=== PATIENT | female | born 1980 | race Caucasian/White ===

== ENCOUNTER 2018-08-08 10:57 | Day surgery (SDC) | payer OTHER, SELFPAY ==
--- NOTE | 2018-08-08 | PATH_ITS ---
[facility] Accession Number: [id number] . 01 Material submitted: . ESOPHAGEAL BIOPSIES . 02 Diagnosis: Esophgus, Biopsies: Squamous epithelium with increased intraepithelial eosinophils (greater than 50 per high-power field). Please see comment. Negative for dysplasia and malignancy. MRV/08/09/2018 . 02 Comment: In the proper clinical setting, the morphologic appearance could support a clinical impression of eosinophilic esophagitis. The differential diagnosis includes a drug reaction, food allergies, and gastroesophageal reflux. . 02 Electronically signed: . Nanda Wolf MD, Pathologist NPI- [id number] . 01 Gross description: . Received in one formalin-filled container labeled with the patient's name and labeled esophageal, are two 0.1-0.2 cm portions of tissue, entirely submitted in one cassette. ([id number]) /FRR . 02 Pathologist provided ICD-10: K20.0 . 02 CPT . 219481 Performed at: 01 [facility] [address] [place] [address], [place], [place] [id number] MD Yusuf Ibarra MD Phone: [phone] Performed at: 02 [facility] [place] [address] [place], [place] [id number] MD Nanda Wolf MD Phone: [phone]
[2018-08-08 12:36] VITALS: BP 119/76; PULSE 74; RESP 17; TEMP 36.2; O2SAT 99
[2018-08-08 12:39] VITALS: BMI 38.2
--- NOTE | 2018-08-08 13:27 | PM.PREOP ---
Pre-operative Note Interval Note Pre-op Check: Yes History & Physical Reviewed by Physician and Yes Exam Performed Changes: No ASA Class (for procedural sedation): I
--- NOTE | 2018-08-08 13:28 | PM.OP.ENDO ---
Operative Date/Time/Diagnoses Date of procedure: 08/08/18 Time of procedure: 13:28 Pre-op diagnosis: See indication and Post-op diagnosis: same Procedure & Clinicians Study performed: EGD Same procedure as scheduled: Yes Indications: Dysphagia Surgeon: Avery Santos Procedure Notes Procedure in detail: After informed consent was obtained the patient was placed left lateral decubitus position. The video upper scope placed into the oropharynx with the patient's ultrasound and the esophagus. The esophagus, stomach, duodenum were carefully examined. On withdrawal, retroflexed view the GE junction was performed. The scope was removed. The patient tolerated procedure well Blood loss none Complications none Sedation Total sedation time 17 min Versed 10 mg fentanyl 200 mcg IV titration Findings 1. Multiple longitudinal furrows and multiple small rings from mid esophagus to distal esophagus. Biopsies taken to rule out the eosinophilic esophagitis 2. Dominant Schatzki's like appearing ring at the GE junction at approximately 40 cm. This was dilated to 15 mm balloon through the scope. Inspection post procedure showed 1 area of mucosal tearing but superficial. 3. 2 cm hiatal hernia 4. Normal stomach and duodenum otherwise Patient will be placed on anti secretory agents to assist in healing and will merely await the results of her biopsies. Will then be in touch by telephone to discuss how she is doing post dilation. Due to difficulty completely sedating her it would be vargas to have future procedures performed with anesthesia assistance.
[2018-08-08] MEDS: SODIUM CHLORIDE 0.9% 1,000 ML 42 ML IV (13:42)
[2018-08-08] MEDS: MIDAZOLAM 5 MG/5 ML VIAL IV (14:33)
[2018-08-08] MEDS: fentaNYL 250 MCG/5 ML INJ IV (14:34)
[2018-08-08 14:38] VITALS: BP 107/70; PULSE 87; RESP 16; TEMP 36.6; O2SAT 95
[2018-08-08 15:05] VITALS: BP 118/81; PULSE 76; RESP 17; TEMP 36.2; O2SAT 99
== END 2018-08-08 15:20 | disposition home or self-care (01) ==
PROVIDERS: PCP Family Medicine; Visit Provider Internal Medicine Gastroenterology
PROC: 0DJ08ZZ Inspection of Upper Intestinal Tract, Via Natural or Artificial Opening Endoscopic (ICD-10-PCS; CPT 43235; principal; 2018-08-08 13:30)
DX: K20.0 Eosinophilic esophagitis (principal); K21.9 Gastro-esophageal reflux disease without esophagitis; K44.9 Diaphragmatic hernia without obstruction or gangrene; K22.2 Esophageal obstruction
CPT/HCPCS: 43249; 43239; J2250; J3010

== ENCOUNTER → 2019-03-01 15:26 | Outpatient (CLI) | payer OTHER, SELFPAY ==
--- NOTE | 2019-03-01 | DI.RAD.S_ITS ---
PROCEDURE: XR CHEST 2V INDICATIONS: FEBRILE COUGH/CHEST PAIN TECHNIQUE: 2 views of the chest were acquired. COMPARISON: [facility], CR, XR CHEST 2V, 12/24/2017, 7:21. FINDINGS: Surgical changes and devices: None. Lungs and pleura: There is patchy consolidation involving the medial margin of the right midlung zone on the frontal view which projects over the perihilar region on the lateral view. This then represent airspace disease involving the inferior, medial aspect of the right upper lobe versus the medial segment of the right middle lobe. Associated airway thickening. Stable subsegmental atelectasis versus scarring at the left costophrenic angle. No pleural effusions or pneumothorax. Mediastinum: Mediastinal contours are normal. Heart size is normal. Bones and chest wall: No suspicious bony abnormalities. Soft tissues appear unremarkable. IMPRESSION: Right medial mid lung zone airspace disease/pneumonia which involves the inferomedial margin of the right upper lobe persist the medial segment of the right middle lobe. Recommend followup chest radiograph 4-6 weeks after treatment to document return to baseline exam. Dictated by: Fabián Ovalles M.D. on 03/01/2019 at 17:41 Approved by: Fabián Ovalles M.D. on 03/01/2019 at 17:45
== END ==
PROVIDERS: PCP Family Medicine; Visit Provider Nurse Practitioner Family
DX: R05 Cough (principal); R07.9 Chest pain, unspecified; R50.9 Fever, unspecified; J45.909 Unspecified asthma, uncomplicated
CPT/HCPCS: 71046

== ENCOUNTER 2019-03-04 03:31 | Emergency (ER) | payer OTHER, SELFPAY ==
[2019-03-04 03:43] VITALS: BP 132/69; PULSE 106; RESP 18; TEMP 36.8; O2SAT 95; BMI 40.8
--- NOTE | 2019-03-04 03:46 | ED_ITS ---
HPI - URI/Sore Throat General Chief Complaint: Upper Respiratory Symptoms Stated Complaint: woke up sweating felt heart rate was weird Time Seen by Provider: 03/04/19 03:33 Source: patient Mode of arrival: ambulatory Limitations: no limitations History of Present Illness HPI Narrative: Patient is a 38-year-old female who presents with heart palpitations and feeling sweaty. She actually is has felt ill all week. She has had sweats and chills and fever along with productive cough. He has had fevers as high as 102 all week. She got started on doxycycline couple days ago she overall states that she has been feeling little bit better. However today she woke up she felt like her heart was racing and she was drenched in sweat. She actually called 911 and decided to come POV to the ER for further evaluation. She says she is feeling a little bit better. She has been trying to hydrate and keep fluids down. Related Data Home Medications Medication Instructions Recorded Confirmed albuterol sulfate [Ventolin HFA] 2 puff INH Q4HP #0 08/13/11 08/08/18 loratadine 10 mg PO DAILY 08/08/18 08/08/18 mometasone-formoterol [Dulera] 2 puff INHALATION DAILY 08/08/18 08/08/18 [id number] fum-folic 1 tab PO DAILY 08/08/18 08/08/18 [Vol-Plus] Previous Rx's Medication Instructions Recorded epinephrine [EpiPen 2-Hermilo] 0.3 mg IM Q10M PRN #1 each 12/23/17 Allergies Allergy/AdvReac Type Severity Reaction Status Date / Time azithromycin Allergy Severe THROAT Verified 08/08/18 12:31 SWELLING naproxen Allergy Severe Difficulty Verified 08/08/18 12:31 Breathing peanut Allergy Severe Anaphylaxis Verified 08/08/18 12:31 Penicillins Allergy Severe Difficulty Verified 08/08/18 12:31 Breathing scallops Allergy Severe Difficulty Verified 08/08/18 12:31 Breathing brazil nuts Allergy Severe Difficulty Uncoded 12/24/17 07:14 Breathing Fin Fish Allergy Severe Difficulty Uncoded 12/24/17 07:14 Breathing Review of Systems Review of Systems ROS Unobtainable: All systems reviewed & are unremarkable except as noted in HPI and below Constitutional Reports chills and Reports fever(s) Eyes Denies change in vision, Denies eye discharge, Denies irritation and Denies loss of vision ENT Ears, Nose, Mouth, and Throat: Denies change in voice, Denies neck pain and Denies sore throat Cardiovascular Denies chest pain, Denies irregular heart rhythm, Denies lightheadedness, Reports palpitations, Reports dyspnea, Denies dyspnea on exertion and Denies orthopnea Respiratory Reports cough, Reports dyspnea, Denies dyspnea on exertion and Denies wheezing Gastrointestinal Gastrointestinal: Denies abdominal pain, Denies change in bowel habits, Denies diarrhea, Denies nausea and Denies vomiting Genitourinary Denies hematuria, Denies flank pain, Denies urinary incontinence and Denies urinary urgency Musculoskeletal Denies neck pain Integumentary/Breasts Denies pruritus, Denies erythema, Denies rash and Denies wounds Neurologic Denies loss of vision Endocrine Reports palpitations Allergic/Immunologic Denies wheezing [facility] Medical History Asthma (Acute) Social History household members: spouse, children and friend(s) Smoking Status: Never smoker Social History household members: spouse, children and friend(s) Smoking Status: Never smoker Exam Initial Vital Signs Initial Vital Signs: Vital Signs Temperature 98.2 F 03/04/19 03:43 Pulse Rate 106 H 03/04/19 03:43 Respiratory Rate 18 03/04/19 03:43 Blood Pressure 132/69 03/04/19 03:43 Pulse Oximetry 95 03/04/19 03:43 GENERAL: Alert well-appearing female and in no acute distress. HEENT: Head atraumatic,EOMI, pupils reactive, face symmetric, moist mucous membranes CARDIOVASCULAR: Regular rate and rhythm without murmurs, rubs or gallops. RESPIRATORY: Breath sounds equal bilaterally, no wheezes rales or rhonchi. ABDOMEN: Soft, nontender. Normoactive bowel sounds all 4 quadrants. No guarding or rebound. EXTREMITIES: Normal range of motion, no clubbing or edema. Neurovascularly intact NEUROLOGICAL: Alert and oriented x4.Normal gait and speech. Cranial nerves II through XII grossly intact. SKIN: Warm, dry, no laceration, no petechiae, no rashes or lesions. Course Orders Ordered: ED Orders 03/04/19 03:46 Consult to Respiratory Therapy Evaluate & Treat 03/04/19 03:47 XR chest 1V Stat EKG-12 Lead Stat 03/04/19 04:50 Complete Blood Count AUTO DIFF Stat Comprehensive Metabolic Panel Stat Lactate (Lactic Acid) Stat Procalcitonin Stat 03/04/19 05:05 Blood Culture Stat Discontinued Medications Sodium Chloride (Normal Saline 0.9%) 1,000 mls @ 1,000 mls/hr IV BOLUS ONE Stop: 03/04/19 04:45 Last Admin: 03/04/19 05:06 Dose: 1,000 mls/hr Vital Signs - 8 hr 03/04/19 03:43 Temperature 98.2 F Pulse Rate 106 H Respiratory Rate 18 Blood Pressure 132/69 Pulse Oximetry 95 MDM - URI/Sore Throat Lab Data Attestation: I reviewed the patient's lab results. Result diagrams: 03/04/19 04:50 03/04/19 04:50 Lab Results 03/04/19 03/04/19 03/04/19 Range/Units 04:50 04:50 04:50 WBC 7.1 (4.5-11.0) X10^3/uL RBC 4.17 (4.0-5.2) X10^6/uL Hgb 12.7 (12.0-16.0) g/dL Hct 38.0 (36-46) % MCV 91.1 (80-100) fL MCH 30.5 (26-34) PG MCHC 33.4 (30-36) % RDW 14.3 (11.6-14.8) % Plt Count 232 (150-400) X10^3/uL Neut % (Auto) 78.4 H (50-75) % Lymph % (Auto) 15.9 L (25-40) % [place] % (Auto) 5.4 (3-14) % Eos % (Auto) 0.1 L (2-4) % Baso % (Auto) 0.2 (0-2) % Neut # (Auto) 5600 (5081-1794) /uL Lymph # (Auto) 1100 (9499-7521) /uL [place] # (Auto) 400 (0-900) /uL Eos # (Auto) 0 (0-450) /uL Baso # (Auto) 0 (0-100) /uL Sodium 143 (137-145) mmol/L Potassium 3.8 (3.4-5.1) mmol/L Chloride 109 H (98-107) mmol/L Carbon Dioxide 25 (22-32) mmol/L BUN 16 (7-17) mg/dL Creatinine 0.60 (0.52-1.04) mg/dL Estimated GFR > 60.0 (>60) mL/min BUN/Creatinine Ratio 26.7 H (6-22) Glucose 111 H (70-100) mg/dL Lactate (0.7-2.1) mmol/L Calcium 9.2 (8.4-10.2) mg/dL Total Bilirubin 0.5 (0.2-1.3) mg/dL AST 25 (14-36) IU/L ALT 29 (9-52) IU/L Alkaline Phosphatase 105 (38-126) U/L Total Protein 7.8 (6.3-8.2) g/dL Albumin 4.2 (3.5-5.0) g/dL Globulin 3.6 (1.7-4.1) g/dL Albumin/Globulin Ratio 1.2 (1.0-2.8) Procalcitonin 0.05 (<0.5) ng/mL 03/04/19 Range/Units 04:50 WBC (4.5-11.0) X10^3/uL RBC (4.0-5.2) X10^6/uL Hgb (12.0-16.0) g/dL Hct (36-46) % MCV (80-100) fL MCH (26-34) PG MCHC (30-36) % RDW (11.6-14.8) % Plt Count (150-400) X10^3/uL Neut % (Auto) (50-75) % Lymph % (Auto) (25-40) % [place] % (Auto) (3-14) % Eos % (Auto) (2-4) % Baso % (Auto) (0-2) % Neut # (Auto) (2238-1308) /uL Lymph # (Auto) (5656-6142) /uL [place] # (Auto) (0-900) /uL Eos # (Auto) (0-450) /uL Baso # (Auto) (0-100) /uL Sodium (137-145) mmol/L Potassium (3.4-5.1) mmol/L Chloride (98-107) mmol/L Carbon Dioxide (22-32) mmol/L BUN (7-17) mg/dL Creatinine (0.52-1.04) mg/dL Estimated GFR (>60) mL/min BUN/Creatinine Ratio (6-22) Glucose (70-100) mg/dL Lactate 1.0 (0.7-2.1) mmol/L Calcium (8.4-10.2) mg/dL Total Bilirubin (0.2-1.3) mg/dL AST (14-36) IU/L ALT (9-52) IU/L Alkaline Phosphatase (38-126) U/L Total Protein (6.3-8.2) g/dL Albumin (3.5-5.0) g/dL Globulin (1.7-4.1) g/dL Albumin/Globulin Ratio (1.0-2.8) Procalcitonin (<0.5) ng/mL Point of Care Testing Test Results Negative Urine Dip Bedside Urine Glucose Negative Bedside Urine Bilirubin - Negative Bedside Urine Ketone - Negative Urine Specific [place] 1.010 Bedside Urine Occult Blood - Negative Bedside Urine pH 6.0 Bedside Urine Protein - Negative Bedside Urine Urobilinogen - Negative Bedside Urine Nitrite - Negative Bedside Urine Leukocytes - Negative Esterase Imaging Data Chest x-ray: Attestation: I personally reviewed and interpreted this imaging study as follows: My impression: Right middle lobe pneumonia as seen previously ECG Data Attestation: I personally reviewed and interpreted this ECG as follows: Prior ECG tracings: available for review Interpretation: Normal sinus rhythm rate 80 to WI interval [address] changes no to wave inversions MDM Narrative Medical decision making narrative: Patient's blood work is reassuring she overall is not septic. Pneumonia still remains. However seems to be responding well clinically current antibiotics. Recommend continuing those. At this time no need for admission. Discharge Plan Departure Patient Disposition: Home Clinical Impression: Pneumonia Qualifiers: Pneumonia type: due to unspecified organism Laterality: right Lung location: middle lobe of lung Qualified Code(s): J18.1 - Lobar pneumonia, unspecified organism Instructions: DI for Pneumonia -- Adult Activity Restrictions/Additional Instructions: *You have been diagnosed with pneumonia *What to do: At this time it appears that your antibiotics are working but you need to take them for longer *Continue to take medications as directed Finish antibiotics as previously prescribed Use albuterol every 4 hours if needed for shortness of breath *Follow up with your primary care provider in 2-3 days *Return to ER if you should have increasing shortness of breath, persistent fevers, inability to tolerate fluids or any new, worsening or concerning symptoms Prescriptions: No Action albuterol sulfate [Ventolin HFA] 90 MCG/PUFF HFA aerosol inhaler 2 puff INH Q4HP Qty: 0 RF: 0 epinephrine [EpiPen 2-Hermilo] 0.3 mg/0.3 mL auto-injector 0.3 mg IM Q10M PRN (Reason: anaphylaxis) Qty: 1 RF: 0 mometasone-formoterol [Dulera] 100-5 mcg/actuation HFA aerosol inhaler 2 puff Inhalation DAILY RF: 0 loratadine 10 mg Capsule 10 mg PO DAILY RF: 0 [id number] fum-folic [Vol-Plus] 27 mg iron- 1 mg Tablet 1 tab PO DAILY RF: 0 Referrals: Ángel Quick MD [Primary Care Provider] - Stand Alone Forms: Work Release Note
--- NOTE | 2019-03-04 03:47 | DI.RAD.S_ITS ---
PROCEDURE: XR CHEST 1V INDICATIONS: short of breath TECHNIQUE: One view of the chest was acquired. COMPARISON: [facility], CR, XR CHEST 2V, 12/24/2017, 7:21. [facility], CR, XR CHEST 2V, 03/01/2019, 15:42. FINDINGS: Surgical changes and devices: None. Lungs and pleura: Lungs are clear. No pleural effusions or pneumothorax. Mediastinum: Mediastinal contours appear normal. Heart size is normal. Bones and chest wall: No suspicious bony lesions. Overlying soft tissues appear unremarkable. IMPRESSION: No acute cardiopulmonary disease process. Dictated by: Rafia Carbone MD, PhD on 03/04/2019 at 8:58 Approved by: Rafia Carbone MD, PhD on 03/04/2019 at 8:59
[2019-03-04 05:05] LABS: Add Manual Diff / Slide Review NO; Basophils Absolute Auto 0 /uL (0-100); Basophils Percent Auto 0.2 % (0-2); Eosinophils Absolute Auto 0 /uL (0-450); Eosinophils Percent Auto 0.1 % (2-4); Hemoglobin 12.7 g/dL (12.0-16.0); Lymphocytes Absolute Auto 1100 /uL (1100-4500); Lymphocytes Percent Auto 15.9 % (25-40); Mean Corpuscular HGB Conc 33.4 % (30-36); Mean Corpuscular Hemoglobin 30.5 PG (26-34); Mean Corpuscular Volume 91.1 fL (80-100); Monocytes Absolute Auto 400 /uL (0-900); Monocytes Percent Auto 5.4 % (3-14); Neutrophils Absolute Auto 5600 /uL (1500-7000); Neutrophils Percent Auto 78.4 % (50-75); Platelet Count 232 X10^3/uL (150-400); Red Blood Cell Count 4.17 X10^6/uL (4.0-5.2); Red Cell Distribution Width 14.3 % (11.6-14.8); White Blood Cell Count 7.1 X10^3/uL (4.5-11.0)
[2019-03-04] MEDS: SODIUM CHLORIDE 0.9% 1,000 ML 1000 ML IV (05:06)
[2019-03-04 05:11] LABS: Alanine Aminotransferase 29 IU/L (9-52); Albumin 4.2 g/dL (3.5-5.0); Albumin Globulin Ratio 1.2 (1.0-2.8); Alkaline Phosphatase 105 U/L (38-126); Aspartate Aminotransferase 25 IU/L (14-36); BUN Creatinine Ratio 26.7 (6-22); Bilirubin Total 0.5 mg/dL (0.2-1.3); Blood Urea Nitrogen 16 mg/dL (7-17); Calcium 9.2 mg/dL (8.4-10.2); Carbon Dioxide 25 mmol/L (22-32); Chloride 109 mmol/L (98-107); Estimated Glomerular Filt Rate > 60.0 mL/min (>60); Globulin 3.6 g/dL (1.7-4.1); Glucose 111 mg/dL (70-100); HEMOLYSIS < 15 (0-50); Potassium 3.8 mmol/L (3.4-5.1); Sodium 143 mmol/L (137-145); Total Protein 7.8 g/dL (6.3-8.2)
[2019-03-04 05:30] LABS: Procalcitonin 0.05 ng/mL (<0.5)
[2019-03-04 06:06] VITALS: BP 103/52; PULSE 84; RESP 22; TEMP 36.5; O2SAT 96
== END 2019-03-04 06:07 | disposition home or self-care (01) ==
PROVIDERS: Emergency Provider Emergency Medicine; PCP Family Medicine
DX: J18.1 Lobar pneumonia, unspecified organism (principal); R00.2 Palpitations
CPT/HCPCS: 36415; 36591; 71045; 80053; 81003; 81025; 83605; 84145; 85025; 87040; 93005; 96360; 99283; 99285

== ENCOUNTER 2019-04-17 07:33 | Day surgery (SDC) | payer OTHER, SELFPAY ==
[2019-04-17] VITALS (7 sets, daily range): BP systolic 95–123; BP diastolic 56–77; PULSE 85–93; RESP 10–20; TEMP 36.2–36.7; O2SAT 89–95; BMI 42.1
[2019-04-17] MEDS: SODIUM CHLORIDE 0.9% 1,000 ML 200 ML IV (08:02)
--- NOTE | 2019-04-17 08:39 | PM.PREOP ---
Pre-operative Note Interval Note History & Physical reviewed/Exam performed by Physician: Yes Changes to H&P: No ASA Class (for procedural sedation): II
--- NOTE | 2019-04-17 08:39 | PM.OP.ENDO ---
Operative Date/Time/Diagnoses Date of procedure: 04/17/19 Time of procedure: 08:39 Pre-op diagnosis: See indication and findings Procedure & Clinicians Study performed: EGD Same procedure as scheduled: Yes Indications: Dysphagia Surgeon: Avery Santos Procedure Notes Procedure in detail: After informed consent was obtained the patient was placed in left lateral decubitus position. The video upper scope was placed into the oropharynx with the patient's health swallowed into the esophagus. The esophagus, stomach, and duodenum were carefully examined. On withdrawal, retroflexed view the GE junction was performed. The scope was removed. The patient tolerated the procedure well. Blood loss none Complications none Sedation Total sedation time 10 minutes Fentanyl 200 mg Versed 10 mg IV titration Findings 1. Furrows and rings in the esophagus consistent with known diagnosis of eosinophilic esophagitis 2. Mild to moderate Schatzki's ring at the GE junction at 40 cm. This was treated with a 15-18 mm balloon. Good effect was achieved. No complications noted. 3. 3 cm hiatal hernia 4. Otherwise normal stomach 5. Normal duodenal bulb Terri will call me in 2 weeks to let me know how she is doing. They are in the process of getting an appointment with Dr. Monsalve.
[2019-04-17] MEDS: ONDANSETRON 4 MG/2 ML INJ IV (09:01)
--- NOTE | 2019-04-17 09:08 | SUR.OPER ---
GLASSES IN LABELED BAG TO PACU WITH PATIENT
[2019-04-17] MEDS: fentaNYL 250 MCG/5 ML INJ IV (09:12)
[2019-04-17] MEDS: MIDAZOLAM 5 MG/5 ML VIAL IV (09:15)
== END 2019-04-17 10:05 | disposition home or self-care (01) ==
PROVIDERS: PCP Family Medicine; Visit Provider Internal Medicine Gastroenterology
PROC: 0DJ08ZZ Inspection of Upper Intestinal Tract, Via Natural or Artificial Opening Endoscopic (ICD-10-PCS; CPT 43235; principal; 2019-04-17 09:00)
DX: K20.0 Eosinophilic esophagitis (principal); K22.2 Esophageal obstruction; K44.9 Diaphragmatic hernia without obstruction or gangrene
CPT/HCPCS: 43249; J2250; J2405; J3010

== ENCOUNTER → 2019-04-24 16:55 | Outpatient (CLI) | payer OTHER, SELFPAY ==
--- NOTE | 2019-04-24 16:57 | DI.RAD.S_ITS ---
PROCEDURE: XR CHEST 2V INDICATIONS: HISTORY OF PNEUMONIA TECHNIQUE: 2 views of the chest were acquired. COMPARISON: [facility], CR, XR CHEST 1V, 03/04/2019, 4:16. FINDINGS: Surgical changes and devices: None. Lungs and pleura: Coarse interstitial markings in both lungs. Small opacity in the left lower lung along the cardiac border. No pleural effusion. No pneumothorax. Mediastinum: Mediastinal contours are normal. Heart size is normal. Bones and chest wall: No suspicious bony abnormalities. Soft tissues appear unremarkable. IMPRESSION: Mildly coarse interstitial markings suggests chronic bronchitis or reactive airways disease. Small opacity at the left cardiac border may be atelectatic change, less likely infection. Clinical correlation recommended. Dictated by: Nancy Bowers M.D. on 04/24/2019 at 18:48 Approved by: Nancy Bowers M.D. on 04/24/2019 at 18:49
== END ==
PROVIDERS: PCP Family Medicine; Visit Provider Family Medicine
DX: Z87.01 Personal history of pneumonia (recurrent) (principal)
CPT/HCPCS: 71046

== ENCOUNTER → 2020-04-22 10:30 | Outpatient (CLI) | payer OTHER, SELFPAY ==
--- NOTE | 2020-04-22 | DI.RAD.S_ITS ---
PROCEDURE: XR FOOT LT MIN 3V INDICATIONS: LEFT INNER FOOT PAIN TECHNIQUE: 3 views of the foot were acquired. COMPARISON: [facility], , FOOT 3V RIGHT, 06/26/2013, 15:37. FINDINGS: Bones: No fractures or dislocations. No suspicious bony lesions. Degenerative changes are seen, which are most prominent involving the Lisfranc joint. There is a moderate prominent plantar calcaneal spur. Incidental note is made of an enthesophyte at the Achilles insertion. A bipartite os peroneum can be seen. Incidental note is made of an accessory ossicle, an os trigonum. Soft tissues: No tibiotalar joint effusion. Achilles tendon appears normal. IMPRESSION: Premature degenerative changes are seen, particularly along the Lisfranc joint. The moderate prominent plantar calcaneal spur can be seen. Dictated by: Peter Saenz M.D. on 04/22/2020 at 10:33 Approved by: Peter Saenz M.D. on 04/22/2020 at 10:34
== END ==
PROVIDERS: PCP Family Medicine; Referring Provider Family Medicine; Visit Provider Family Medicine
DX: M79.672 Pain in left foot (principal); M77.31 Calcaneal spur, right foot
CPT/HCPCS: 73630

== ENCOUNTER → 2020-07-13 10:39 | Outpatient (CLI) | payer OTHER, SELFPAY ==
--- NOTE | 2020-07-13 | DI.CT.S_ITS ---
PROCEDURE: CT LE RT WO CON INDICATIONS: ANKYLOSING HYPEROSTOSIS TECHNIQUE: Noncontrast 1-1.5 mm axial sections acquired from above the tibiotalar joint to the bottom of the calcaneus, with coronal and sagittal reformats. COMPARISON: [facility], CR, XR FOOT 3+ VIEWS RIGHT, 06/24/2020, 15:50. FINDINGS: Image quality: Excellent. Bones: Examination of right foot shows hyperostosis involving lateral cortex of 2nd metatarsal base/proximal shaft, base and proximal shaft of 3rd and 4th metatarsal bones as well as medial cortex of 5th metatarsal base/proximal shaft. There is pseudoarthrosis between base/proximal shaft of 2nd through 5th metatarsal bones. No evidence of ankylosis. No fracture or dislocation. No suspicious intraosseous lesion. Well-defined plantar calcaneal enthesophyte is seen. Tiny dorsal calcaneal enthesophyte is also noted. Osteoarthritic changes are noted throughout midfoot and hindfoot joints. Soft tissues: Plantar fascia is grossly intact. Achilles tendon is intact. No full-thickness extensor, flexor, or peroneus tendon rupture. No soft tissue mass or fluid collection. IMPRESSION: 1. Hyperostosis involving 2nd through 5th metatarsal bases/proximal shaft with pseudoarthrosis as above. There is no ankylosis at this time. No suspicious intraosseous lesion. No fracture or dislocation. 2. Mild osteoarthritic changes are noted throughout midfoot and hindfoot joints. Well-defined plantar calcaneal enthesophyte. Dictated by: Erick Martin M.D. on 07/13/2020 at 11:29 Approved by: Erick Martin M.D. on 07/13/2020 at 11:38
== END ==
PROVIDERS: PCP Family Medicine; Referring Provider Podiatrist; Visit Provider Podiatrist
DX: M85.871 Other specified disorders of bone density and structure, right ankle and foot (principal)
CPT/HCPCS: 73700

== ENCOUNTER → 2021-01-08 12:19 | Outpatient (CLI) | payer OTHER, SELFPAY ==
[2021-01-08 13:40] LABS: Add Manual Diff / Slide Review NO; Basophils Absolute Auto 0 /uL (0-100); Basophils Percent Auto 0.9 % (0-2); Eosinophils Absolute Auto 400 /uL (0-450); Eosinophils Percent Auto 7.3 % (2-4); Hematocrit 39.3 % (36-46); Hemoglobin 12.7 g/dL (12.0-16.0); Lymphocytes Absolute Auto 1900 /uL (1100-4500); Lymphocytes Percent Auto 33.2 % (25-40); Mean Corpuscular HGB Conc 32.4 % (30-36); Mean Corpuscular Hemoglobin 30.7 PG (26-34); Mean Corpuscular Volume 94.8 fL (80-100); Monocytes Absolute Auto 400 /uL (0-900); Monocytes Percent Auto 7.1 % (3-14); Neutrophils Absolute Auto 3000 /uL (1500-7000); Neutrophils Percent Auto 51.5 % (50-75); Platelet Count 194 X10^3/uL (150-400); Red Blood Cell Count 4.15 X10^6/uL (4.0-5.2); Red Cell Distribution Width 14.4 % (11.6-14.8); White Blood Cell Count 5.7 X10^3/uL (4.5-11.0)
[2021-01-08 13:57] LABS: Alanine Aminotransferase 25 IU/L (<35); Albumin 4.1 g/dL (3.5-5.0); Albumin Globulin Ratio 1.2 (1.0-2.8); Alkaline Phosphatase 90 U/L (38-126); Aspartate Aminotransferase 33 IU/L (14-36); BUN Creatinine Ratio 15.9 (6-22); Bilirubin Total 0.3 mg/dL (0.2-1.3); Blood Urea Nitrogen 10 mg/dL (7-17); C-Reactive Protein Quant 1.4 mg/dL (<1.0); Calcium 8.8 mg/dL (8.4-10.2); Carbon Dioxide 25 mmol/L (22-32); Chloride 108 mmol/L (98-107); Estimated Glomerular Filt Rate > 60.0 mL/min (>60); Globulin 3.4 g/dL (1.7-4.1); Glucose 98 mg/dL (70-100); HEMOLYSIS < 15 (0-50); Potassium 3.8 mmol/L (3.4-5.1); Sodium 139 mmol/L (137-145); Total Protein 7.5 g/dL (6.3-8.2)
[2021-01-08 14:14] LABS: Erythrocyte Sedimentation Rate 19 MM/HR (0-20)
== END ==
PROVIDERS: PCP Family Medicine; Referring Provider Internal Medicine Rheumatology; Visit Provider Internal Medicine Rheumatology
DX: M89.40 Other hypertrophic osteoarthropathy, unspecified site (principal)
CPT/HCPCS: 36415; 80053; 85025; 85651; 86140

== ENCOUNTER → 2021-01-11 16:02 | Outpatient (CLI) | payer OTHER, SELFPAY ==
--- NOTE | 2021-01-11 | DI.RAD.S_ITS ---
PROCEDURE: XR KNEE LT 3V INDICATIONS: HYPERTROPHIC OSTEOARTHROPATHY TECHNIQUE: 3 views of the knee were acquired. COMPARISON: [facility], , KNEE 3V RIGHT, 02/26/2015, 8:59. FINDINGS: Bones: No fractures or dislocations. Sfba-er-dfqsuble tricompartmental osteoarthritis is seen more prominent in medial femoral tibial compartment. No suspicious bony lesions. Soft tissues: No joint effusion. No suspicious soft tissue calcifications. IMPRESSION: Xynq-ml-rollunbz tricompartmental osteoarthritis more prominent in medial femoral tibial compartment. No fracture or dislocation. No significant joint effusion. Dictated by: Erick Martin M.D. on 01/11/2021 at 17:33 Approved by: Erick Martin M.D. on 01/11/2021 at 17:34
--- NOTE | 2021-01-11 | DI.RAD.S_ITS ---
PROCEDURE: XR KNEE RT 3V INDICATIONS: HYPERTROPHIC OSTEOARTHROPATHY TECHNIQUE: 3 views of the knee were acquired. COMPARISON: [facility], , KNEE 3V RIGHT, 02/26/2015, 8:59. FINDINGS: Bones: No fractures or dislocations. Mild to moderate tricompartmental osteoarthritis is seen more prominent in medial femoral tibial compartment. No suspicious bony lesions. Soft tissues: No joint effusion. No suspicious soft tissue calcifications. IMPRESSION: Tymv-sv-emjzlvfl tricompartmental osteoarthritis more prominent in medial femoral tibial compartment. No fracture or dislocation. No significant joint effusion. Dictated by: Erick Martin M.D. on 01/11/2021 at 17:34 Approved by: Erick Martin M.D. on 01/11/2021 at 17:34
--- NOTE | 2021-01-11 | DI.RAD.S_ITS ---
PROCEDURE: XR SHOULDER RT MIN 2V INDICATIONS: HYPERTROPHIC OSTEOARTHROPATHY TECHNIQUE: 3 views of the shoulder were acquired. COMPARISON: None. FINDINGS: Bones: No fractures or dislocations. Moderate right acromioclavicular joint osteoarthritis and xxsv-ni-vfapiywt glenohumeral joint osteoarthritis is seen. No suspicious bony lesions. Visualized ribs appear intact. Soft tissues: No suspicious soft tissue calcifications. IMPRESSION: Moderate right acromioclavicular joint osteoarthritis and yfkx-rq-tjnpazdq right glenohumeral joint osteoarthritis. No fracture or dislocation. Dictated by: Erick Martin M.D. on 01/11/2021 at 17:36 Approved by: Erick Martin M.D. on 01/11/2021 at 17:36
--- NOTE | 2021-01-11 | DI.RAD.S_ITS ---
PROCEDURE: XR CHEST 2V INDICATIONS: HYPERTROPHIC OSTEOARTHROPATHY TECHNIQUE: 2 views of the chest were acquired. COMPARISON: [facility], CR, XR CHEST 2V, 04/24/2019, 16:59. FINDINGS: Surgical changes and devices: None. Lungs and pleura: Lungs are clear. No pleural effusions or pneumothorax. Mediastinum: Mildly tortuous thoracic aorta is seen. Heart size is normal. Bones and chest wall: No suspicious bony abnormalities. Soft tissues appear unremarkable. IMPRESSION: No acute cardiopulmonary pathology. Dictated by: Erick Martin M.D. on 01/11/2021 at 17:35 Approved by: Erick Martin M.D. on 01/11/2021 at 17:35
--- NOTE | 2021-01-11 | DI.RAD.S_ITS ---
PROCEDURE: XR SACROILIAC JOINT MIN 3V INDICATIONS: HYPERTROPHIC OSTEOARTHROPATHY TECHNIQUE: 3 views of the sacroiliac joints were acquired. COMPARISON: None. FINDINGS: Bones: No bony erosions or ankylosis. No suspicious bony lesions. No fractures. Soft tissues: Overlying bowel gas pattern is normal. No suspicious soft tissue densities. IMPRESSION: No ankylosis or erosion is seen in bilateral sacroiliac joints. No fracture or dislocation. Dictated by: Erick Martin M.D. on 01/11/2021 at 17:32 Approved by: Erick Martin M.D. on 01/11/2021 at 17:32
--- NOTE | 2021-01-11 | DI.RAD.S_ITS ---
PROCEDURE: XR LUMBAR SPINE MIN 4V INDICATIONS: HYPERTROPHIC OSTEOARTHROPATHY TECHNIQUE: 5 views of the lumbar spine were acquired, including bilateral oblique views. COMPARISON: None. FINDINGS: Bones: 5 nonrib-bearing vertebrae are present. There is normal bony alignment. Degenerative endplate changes and mild bilateral facet arthrosis at L3-4 through L5-S1 levels are seen. No vertebral body compression fractures. No suspicious bony lesions. Soft tissues: Overlying bowel gas pattern is normal. No suspicious soft tissue calcifications. Oblique images: No pars defects. No significant bony foraminal stenosis. 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 No acute compression fracture or spondylolisthesis. No pars defects. Dictated by: Erick Martin M.D. on 01/11/2021 at 17:35 Approved by: Erick Martin M.D. on 01/11/2021 at 17:35
--- NOTE | 2021-01-11 | DI.RAD.S_ITS ---
PROCEDURE: XR CERVICAL SPINE 4V OR 5V INDICATIONS: hypertrophic osteoarthropathy TECHNIQUE: 6 views of the cervical spine acquired. COMPARISON: None. FINDINGS: Bones: No fractures or dislocations to the C7-T1 level. Degenerative endplate changes and bilateral facet hypertrophic changes are noted at C5-6 and C6-7 levels. Oblique images demonstrate mild bilateral bony foraminal stenosis at C5-6 level. Soft tissues: No prevertebral soft tissue swelling. IMPRESSION: Degenerative endplate changes in lower cervical spine with suggestion of mild bilateral bony foraminal stenosis at C5-6 level. Dictated by: Erick Martin M.D. on 01/11/2021 at 17:32 Approved by: Erick Martin M.D. on 01/11/2021 at 17:33
--- NOTE | 2021-01-11 | DI.RAD.S_ITS ---
PROCEDURE: XR SHOULDER LT MIN 2V INDICATIONS: HYPERTROPHIC OSTEOARTHROPATHY TECHNIQUE: 3 views of the shoulder were acquired. COMPARISON: None. FINDINGS: Bones: No fractures or dislocations. Mild to moderate acromioclavicular joint and glenohumeral joint osteoarthritic changes are seen. No suspicious bony lesions. Visualized ribs appear intact. Soft tissues: No suspicious soft tissue calcifications. IMPRESSION: [id number] left shoulder joint osteoarthritis. No fracture or dislocation. Dictated by: Erick Martin M.D. on 01/11/2021 at 17:35 Approved by: Erick Martin M.D. on 01/11/2021 at 17:36
== END ==
LOC: RAD 16:06
PROVIDERS: PCP Family Medicine; Referring Provider Internal Medicine Rheumatology; Visit Provider Internal Medicine Rheumatology
DX: M89.40 Other hypertrophic osteoarthropathy, unspecified site (principal); M47.812 Spondylosis without myelopathy or radiculopathy, cervical region; M47.816 Spondylosis without myelopathy or radiculopathy, lumbar region; M47.817 Spondylosis without myelopathy or radiculopathy, lumbosacral region; M17.0 Bilateral primary osteoarthritis of knee; M19.011 Primary osteoarthritis, right shoulder; M19.012 Primary osteoarthritis, left shoulder
CPT/HCPCS: 71046; 72050; 72110; 72202; 73030; 73562

== ENCOUNTER → 2021-12-22 15:53 | Outpatient (CLI) | payer OTHER, MEDICAID, SELFPAY ==
--- NOTE | 2021-12-22 | DI.RAD.S_ITS ---
PROCEDURE: XR CHEST 2V INDICATIONS: COVID + TECHNIQUE: 2 views of the chest were acquired. COMPARISON: [facility], CR, XR CHEST 2V, 01/11/2021, 16:27. [facility], CR, XR CHEST 2V, 04/24/2019, 16:59. FINDINGS: Surgical changes and devices: None. Lungs and pleura: There is a pulmonary radiopacity projected over the left lung base which is new when compared with the plain film dated January 11, 2021. The lungs are otherwise clear. No pleural effusion or pneumothorax. Mediastinum: Mediastinal contours are normal. Heart size is normal. Bones and chest wall: No suspicious bony abnormalities. Soft tissues appear unremarkable. IMPRESSION: Questionable left lower lobe pulmonary radiopacity versus overlying soft tissue or bone artifact. Findings may represent pulmonary consolidation or pulmonary mass. Short interval follow-up recommended to resolution. No other acute pulmonary findings. Dictated by: Nahed Montalvo M.D. on 12/22/2021 at 16:26 Approved by: Nahed Montalvo M.D. on 12/22/2021 at 16:27
== END ==
PROVIDERS: PCP Family Medicine; Referring Provider Family Medicine; Visit Provider Family Medicine
DX: R04.89 Hemorrhage from other sites in respiratory passages (principal); U07.1 COVID-19
CPT/HCPCS: 71046

== ENCOUNTER → 2022-01-31 12:43 | Outpatient (CLI) | payer OTHER, MEDICAID, SELFPAY ==
--- NOTE | 2022-01-31 | DI.RAD.S_ITS ---
PROCEDURE: XR CHEST 2V INDICATIONS: hemorrhage from other sites in respiratory passages TECHNIQUE: 2 views of the chest were acquired. COMPARISON: [facility], , XR CHEST 2V, 12/22/2021, 15:51. FINDINGS: In the area of the previously seen left basilar airspace opacity there is some mildly increased interstitial versus airspace markings which are abnormal but have improved from the prior study. Otherwise clear lungs and pleural spaces. Heart size is normal. IMPRESSION: Previously seen left basilar airspace opacity has improved but there is still some residual interstitial versus airspace opacity in this region. Follow-up to document resolution or stability is recommended. Dictated by: Ever Messina M.D. on 01/31/2022 at 13:51 Approved by: Ever Messina M.D. on 01/31/2022 at 13:54
== END ==
PROVIDERS: PCP Family Medicine; Referring Provider Family Medicine; Visit Provider Family Medicine
DX: R04.89 Hemorrhage from other sites in respiratory passages (principal)
CPT/HCPCS: 71046

== ENCOUNTER 2022-04-12 14:44 | Emergency (ER) | payer OTHER, MEDICAID, SELFPAY ==
[2022-04-12 14:44] VITALS: BP 184/88; PULSE 93; RESP 22; TEMP 37; O2SAT 100; BMI 41.5
[2022-04-12] MEDS: methylPREDNISolone 125 MG/2 ML VIAL IV (14:53)
[2022-04-12] MEDS: FAMOTIDINE 20 MG/2 ML VIAL IV (14:54)
[2022-04-12 15:14] VITALS: BP 166/77; PULSE 86; RESP 22; O2SAT 99
--- NOTE | 2022-04-12 15:55 | ED.ALLEREA ---
HPI - Allergic Reaction General Chief complaint: Allergic Reaction Stated complaint: Allergic reaction seafood Time Seen by Provider: 04/12/22 15:24 Source: EMS Mode of arrival: EMS Limitations: no limitations History of Present Illness HPI narrative: This is a 41 year old female with history of seafood allergy which patient states fish. She had a shrimp salad today a couple bites into this she started to feel tingling had some welts on her lips swelling and felt sort of tight in her airway. Patient has had anaphylaxis before. She suspects it with some cross contamination. She used her EpiPen she was unsure if it fully deployed as the needle was still out when removed but she did not have any liquid on her pants and she felt jittery and that her heart was fast after she received and her symptoms improved shortly thereafter. She also took 50 mg of Benadryl with EMS. She states her symptoms seemed to have resolved, she states pulse of resolved the tingling in her airway symptoms have resolved. She denies any new chest pain or wheeziness. No nausea or vomiting. No diarrhea she did not appreciate any rash or itching elsewhere. She does have a history of asthma and uses an inhaler, she has multiple food and medication allergies. Patient feels significantly improved at this time she does not wish to continue to observe for another 2 hours and lives about 10 blocks away would like to return home. Related Data Home Medications Medication Instructions Recorded Confirmed albuterol sulfate 90 mcg/actuation 2 puff INH Q4HP ##0 08/13/11 04/17/19 aerosol inhaler (Ventolin HFA) loratadine 10 mg capsule 10 mg PO DAILY 08/08/18 04/17/19 mometasone-formoterol HFA 100 2 puff inhalation DAILY 08/08/18 04/17/19 mcg-5 mcg/actuation aerosol inhaler multivit with [id number] 1 tab PO DAILY 08/08/18 04/17/19 fumarate-folic acid 27 mg-1 mg tablet (Vol-Plus) Previous Rx's Medication Instructions Recorded epinephrine 0.3 mg/0.3 mL 0.3 mg (0.3 mL) IM Q10M PRN 12/23/17 injection, auto-injector (EpiPen anaphylaxis #1 ea 2-Hermilo) epinephrine 0.3 mg/0.3 mL 0.3 mg (0.3 mL) IM Q5-15M PRN 04/12/22 injection, auto-injector (EpiPen anaphylaxis #2 ea 2-Hermilo) prednisone 20 mg tablet 40 mg PO DAILY #10 tabs 04/12/22 Allergies Allergy/AdvReac Type Severity Reaction Status Date / Time azithromycin Allergy Severe THROAT Verified 04/12/22 15:08 SWELLING fish derived Allergy Severe Difficulty Verified 04/12/22 15:08 Breathing naproxen Allergy Severe Difficulty Verified 04/12/22 15:08 Breathing nut - unspecified Allergy Severe Difficulty Verified 04/12/22 15:08 Breathing peanut Allergy Severe Anaphylaxis Verified 04/12/22 15:08 Penicillins Allergy Severe Difficulty Verified 04/12/22 15:08 Breathing scallops Allergy Severe Difficulty Verified 04/12/22 15:08 Breathing pineapple Allergy Mild ITCHING Verified 04/12/22 15:08 fluticasone AdvReac Intermediate Anxiety Verified 04/12/22 15:08 [From Flovent Diskus] Review of Systems Review of Systems ROS Unobtainable: All systems reviewed & are unremarkable except as noted in HPI and below Patient History Medical History (Updated 04/12/22 @ 16:29 by Adriana Boudreaux DO) Asthma Social History household members: spouse, children and friend(s) Smoking Status: Never smoker Smoking Status: Never smoker alcohol intake frequency: 3 or more drinks per day Alcohol type: beer, wine and hard liquor Substance Use Type: does not use Exam Narrative Exam Narrative: GEN: well nourished, well appearing female, alert and oriented x 3, patient appears to be in mild distress. HEENT: Atraumatic, pupils are equal round reactive to light, extraocular movements are intact, nares are clear, TMs are clear with no fluid, there is no conjunctival pallor. Throat is clear without any exudates, erythema, tonsillar enlargement or uvular deviation, no swelling of lips or tongue, no welts or skin changes. Oropharynx is clear. Normal speech, no stridor or muffled voice. HEART: Regular rate and rhythm without murmur, clicks, rubs. LUNGS:Lungs clear to auscultation, no wheezes, rales, crackles, chest moves symmetrically ABD:bowel sounds normal, soft, non-tender, no guarding, rebound, rigidity, no masses noted, no hepatosplenomegaly MSCL: Non-tender, no muscle atrophy, full range of motion, normal gait NEURO:CN 2-12 intact, sensation normal SKIN: No rash or other skin changes. Initial Vital Signs Initial Vital Signs: Vital Signs Temperature 98.6 F 04/12/22 14:44 Pulse Rate 93 H 04/12/22 14:44 Respiratory Rate 22 04/12/22 14:44 Blood Pressure 184/88 H 04/12/22 14:44 Pulse Oximetry 100 04/12/22 14:44 Oxygen Delivery Method 04/12/22 14:44 Course Orders Ordered: Discontinued Medications Famotidine (Famotidine 20 Mg/2 Ml Vial) 20 mg IV NOW RAMÓN Last Admin: 04/12/22 14:54 Dose: 20 mg Documented By: [facility] Methylprednisolone (Methylprednisolone 125 Mg/2 Ml Vial) 125 mg IV NOW ONE Stop: 04/12/22 14:51 Last Admin: 04/12/22 14:53 Dose: 125 mg Documented By: [facility] Vital Signs Vital signs: Vital Signs - 8 hr 04/12/22 14:44 04/12/22 15:14 04/12/22 16:45 Temperature 98.6 F Pulse Rate 93 H 86 78 Respiratory Rate 22 22 16 Blood Pressure 184/88 H 166/77 H 153/71 H Pulse Oximetry 100 99 98 Oxygen Delivery Method Room Air Room Air Room Air MDM - Allergic Reaction Lab Data Labs: Point of Care Testing Test Results Negative Urine Dip Bedside Urine Glucose Negative Bedside Urine Bilirubin - Negative Bedside Urine Ketone - Negative Urine Specific [place] 1.015 Bedside Urine Occult Blood - Negative Bedside Urine pH 7.0 Bedside Urine Protein - Negative Bedside Urine Urobilinogen - Negative Bedside Urine Nitrite - Negative Bedside Urine Leukocytes - Negative Esterase MDM Narrative Medical decision making narrative: This is a 41-year-old female with complaint of allergic reaction to seafood she was having shrimp salad she has an allergy to fish. There was likely cross contamination she had symptoms gave herself epinephrine and had 50 mg of Benadryl prior to arrival receive Solu-Medrol as well as Pepcid in the department had resolution of symptoms and feels significantly better at this time. She defers observation for 4 hours she is been here for approximately 2+ hours and feels safe to return home she lives only 10 blocks away. Short course of steroids to prevent rebound and refill of her EpiPen Discharge Plan Departure Patient Disposition: Home Clinical Impression: Anaphylaxis Instructions: DI for Anaphylaxis Activity Restrictions/Additional Instructions: Please follow-up as needed. Take steroids daily until gone. You can take Benadryl 1-2 tablets every 6 hours for any persistent symptoms. Also included as refill for your EpiPen. Prescription sent to [facility] in [place]. Please return for new or worsening swelling of your lips, tongue, airway, difficulty with breathing, rash or highs, recurrent symptoms or other new or concerning changes. Prescriptions: New epinephrine [EpiPen 2-Hermilo] 0.3 mg/0.3 mL auto-injector 0.3 mg IM Q5-15M PRN (Reason: anaphylaxis) Qty: 2 0RF Rx Instructions: do not exceed 3 doses per episode prednisone 20 mg tablet 40 mg PO DAILY Qty: 10 0RF No Action albuterol sulfate [Ventolin HFA] 90 MCG/PUFF HFA aerosol inhaler 2 puff INH Q4HP Qty: 0 epinephrine [EpiPen 2-Hermilo] 0.3 mg/0.3 mL auto-injector 0.3 mg IM Q10M PRN (Reason: anaphylaxis) Qty: 1 0RF Rx Instructions: until response Dulera 100-5 mcg/actuation HFA aerosol inhaler 2 puff Inhalation DAILY Label Comments: inhale 2 puffs by mouth twice a day loratadine 10 mg Capsule 10 mg PO DAILY Vol-Plus 27 mg iron- 1 mg Tablet 1 tab PO DAILY Referrals: Ángel Quick MD [Primary Care Provider] - Visit Report Forms: Patient Portal/API
[2022-04-12 16:45] VITALS: BP 153/71; PULSE 78; RESP 16; O2SAT 98
== END 2022-04-12 16:46 | disposition home or self-care (01) ==
PROVIDERS: Emergency Provider Emergency Medicine; PCP Family Medicine
DX: T78.02XA Anaphylactic reaction due to shellfish (crustaceans), initial encounter (principal)
CPT/HCPCS: 81003; 81025; 96374; 96375; 99283; 99284; J2930

== ENCOUNTER → 2022-05-09 10:10 | Outpatient (CLI) | payer OTHER, MEDICAID, SELFPAY ==
--- NOTE | 2022-05-09 | DI.RAD.S_ITS ---
PROCEDURE: XR CHEST 2V INDICATIONS: Hemorrhage from other sites in respiratory passages TECHNIQUE: 2 views of the chest were acquired. COMPARISON: [facility], CR, XR CHEST 2V, 01/31/2022, 12:45. [facility], CR, XR CHEST 2V, 12/22/2021, 15:51. FINDINGS: Surgical changes and devices: None. Lungs and pleura: Similar mild streaky opacity at the left lung base, decreased compared to 12/22/2021. No consolidative opacity. No pleural effusions or pneumothorax. Mediastinum: Mediastinal contours are unchanged. Heart size is normal. Bones and chest wall: No suspicious bony abnormalities. Soft tissues appear unremarkable. IMPRESSION: Similar mild streaky opacity at the left lung base. This is decreased compared to December 2021. This could represent atelectasis or scarring. Bronchiectasis could have a similar appearance. Low suspicion for pneumonia. Consider further evaluation with CT of the chest. IV contrast may be helpful if hemoptysis. Dictated by: Frankie Laguna M.D. on 05/09/2022 at 11:02 Approved by: Frankie Laguna M.D. on 05/09/2022 at 11:05
== END ==
PROVIDERS: PCP Family Medicine; Referring Provider Family Medicine; Visit Provider Family Medicine
DX: R04.89 Hemorrhage from other sites in respiratory passages (principal)
CPT/HCPCS: 71046

== ENCOUNTER → 2022-05-17 10:17 | Outpatient (CLI) | payer OTHER, MEDICAID, SELFPAY ==
--- NOTE | 2022-05-17 | DI.CT.S_ITS ---
PROCEDURE: CT CHEST WO CON INDICATIONS: Hemorrhage from other sites in respiratory passage TECHNIQUE: Noncontrast 5 mm thick sections acquired from the pulmonary apices to the posterior costophrenic angles. 1 mm lung window, 5 mm thick coronal and sagittal and 7 mm axial MIP reformats were then acquired. For radiation dose reduction, the following was used: automated exposure control, adjustment of mA and/or kV according to patient size. COMPARISON: [facility], CR, XR CHEST 2V, 05/09/2022, 10:31. FINDINGS: Image quality: Limited by lack of IV contrast. Lungs and pleura: No acute air space opacities. No pleural effusions or pneumothorax. Central and peripheral airways are patent and normal in caliber. Mediastinum: Heart size is normal. No pericardial effusion. No mediastinal adenopathy by size criteria. Thoracic aorta and central pulmonary arteries are normal in size. Esophagus is normal in caliber. There is a small hiatal hernia. Bones and chest wall: No suspicious bony lesions. No vertebral body compression fractures. No axillary or supraclavicular adenopathy by size criteria. Thyroid gland demonstrates no significant noncontrast abnormality. Abdomen: The liver demonstrates diffuse enlargement and fatty infiltration. There is a gallstone partially seen, as on series 2, image 69. The visualized portions of the upper abdominal structures are otherwise unremarkable for imaging technique. IMPRESSION: Clear lungs, without a cause of hemoptysis seen. No enlarged mediastinal lymph nodes are seen. Incidental note is made of: Small hiatal hernia Enlarged, fatty liver Gallstone Dictated by: Peter Saenz M.D. on 05/17/2022 at 13:02 Approved by: Peter Saenz M.D. on 05/17/2022 at 13:04
== END ==
PROVIDERS: PCP Family Medicine; Referring Provider Family Medicine; Visit Provider Family Medicine
DX: R04.89 Hemorrhage from other sites in respiratory passages (principal); K44.9 Diaphragmatic hernia without obstruction or gangrene; K80.20 Calculus of gallbladder without cholecystitis without obstruction; R16.0 Hepatomegaly, not elsewhere classified
CPT/HCPCS: 71250

== ENCOUNTER → 2022-07-18 11:34 | Outpatient (CLI) | payer OTHER, MEDICAID, SELFPAY ==
[2022-07-18 12:11] LABS: Add Manual Diff / Slide Review NO; Basophils Absolute Auto 100 /uL (0-100); Basophils Percent Auto 1.2 % (0-2); Eosinophils Absolute Auto 200 /uL (0-450); Eosinophils Percent Auto 3.5 % (2-4); Hematocrit 40.1 % (36-46); Hemoglobin 13.5 g/dL (12.0-16.0); Lymphocytes Absolute Auto 1500 /uL (1100-4500); Lymphocytes Percent Auto 33.7 % (25-40); Mean Corpuscular HGB Conc 33.6 % (30-36); Mean Corpuscular Hemoglobin 31.9 PG (26-34); Mean Corpuscular Volume 95.1 fL (80-100); Monocytes Absolute Auto 400 /uL (0-900); Monocytes Percent Auto 8.5 % (3-14); Neutrophils Absolute Auto 2300 /uL (1500-7000); Neutrophils Percent Auto 53.1 % (50-75); Platelet Count 189 X10^3/uL (150-400); Red Blood Cell Count 4.22 X10^6/uL (4.0-5.2); White Blood Cell Count 4.4 X10^3/uL (4.5-11.0)
[2022-07-18 12:49] LABS: HCG Quantitative /Beta subunit < 2.4 mIU/mL
[2022-07-18 16:02] LABS: Follicle Stimulating Hormone 10.5 mIU/mL; Luteinizing Hormone 1.87 mIU/mL
== END ==
PROVIDERS: PCP Family Medicine; Referring Provider Family Medicine; Visit Provider Family Medicine
DX: R10.2 Pelvic and perineal pain (principal); N93.8 Other specified abnormal uterine and vaginal bleeding
CPT/HCPCS: 36415; 83001; 83002; 84702; 85025

== ENCOUNTER → 2022-08-16 07:39 | Outpatient (CLI) | payer OTHER, MEDICAID, SELFPAY ==
--- NOTE | 2022-08-16 | DI.US.S_ITS ---
PROCEDURE: US PELVIC COMPLETE INDICATIONS: Pelvic and perineal pain TECHNIQUE: Real-time scanning was performed of the pelvic organs, with image documentation. Additional endovaginal scanning was necessary due to incomplete visualization of the adnexal and endometrial structures by transabdominal scanning. COMPARISON: None. FINDINGS: Uterus: Uterus is anteverted and normal in size at 10.1 x 5.8 x 4.8 cm. The myometrium is heterogeneous. The endometrium measures 3.6 mm combined thickness. There is a midline anterior subserosal fibroid which measures 2.5 x 3.2 x 2.2 cm. Ovaries: The ovaries are not visualized. Other: No pathologic free abdominal or pelvic fluid. IMPRESSION: 1. This is a limited study given patient body habitus. The ovaries are not visualized. 2. Fibroid uterus. We strive to produce accurate, complete, and clear reports of imaging services. To assist us in improving patient care, this report was composed using standard report templates and voice recognition software. Therefore, it may contain abnormal punctuation, insertions and/or omissions. Occasional wrong-word or sound-alike substitutions may occur. Though we review the report and make efforts to correct it, we do recommend that the report be read carefully in proper context to recognize any text inaccuracies. Dictated by: Nahed Montalvo M.D. on 08/16/2022 at 9:15 Approved by: Nahed Montalvo M.D. on 08/16/2022 at 9:23
== END ==
PROVIDERS: PCP Family Medicine; Referring Provider Family Medicine; Visit Provider Family Medicine
DX: D25.2 Subserosal leiomyoma of uterus (principal); R10.2 Pelvic and perineal pain
CPT/HCPCS: 76830; 76856

== ENCOUNTER → 2022-09-14 10:08 | Outpatient (CLI) | payer OTHER, MEDICAID, SELFPAY ==
--- NOTE | 2022-09-14 | DI.US.S_ITS ---
PROCEDURE: US ABDOMEN COMPLETE INDICATIONS: Unspecified abdominal pain TECHNIQUE: Real-time scanning was performed of the abdominal and retroperitoneal organs, with image documentation. COMPARISON: [facility], , US ABDOMEN/RENAL AND/OR RETROPERITONEAL, 08/18/2005, 10:01. FINDINGS: Liver: The liver demonstrates enlarged size. The liver demonstrates generalized moderately increased echogenicity. This decreases ultrasound sensitivity for detection of hepatic masses. Gallbladder: A 2 cm mobile gallstone can be seen within the gallbladder. The gallbladder wall is not thickened, measuring 3 mm or less. No specific pericholecystic fluid is seen. The sonographic Mallory sign is negative. Biliary ducts: Intrahepatic bile ducts are non-dilated. Extrahepatic bile duct caliber measures 3.6 mm. Normal is 6-7 mm or less in diameter, or 10 mm or less post-cholecystectomy. Pancreas: Visualized portions of the pancreas are sonographically normal. Spleen: Spleen is normal in size and homogeneous in echotexture. Kidneys: Kidneys are normal in size and echotexture. Right kidney measures 11.5 cm cm long; left kidney measures there is 11.3 sent cm long. No hydronephrosis or nephrolithiasis. No solid masses. Aorta: Visualized aorta is normal in caliber at less than 3 cm. Iliacs: Not seen, obscured by overlying bowel gas. IVC: Intrahepatic inferior vena cava is patent. Miscellaneous: No free abdominal fluid. This study is limited by body habitus. IMPRESSION: A single 2 cm mobile gallstone is seen, yet without additional sonographic signs of cholecystitis. Negative for biliary dilatation. Please correlate with physical examination findings, patient presentation, and laboratory values. Enlarged, fatty liver noted. Dictated by: Peter Saenz M.D. on 09/14/2022 at 12:15 Approved by: Peter Saenz M.D. on 09/14/2022 at 12:16
== END ==
PROVIDERS: PCP Family Medicine; Referring Provider Family Medicine; Visit Provider Family Medicine
DX: K80.20 Calculus of gallbladder without cholecystitis without obstruction (principal); K76.0 Fatty (change of) liver, not elsewhere classified; R10.9 Unspecified abdominal pain
CPT/HCPCS: 76700

== ENCOUNTER → 2022-10-27 10:02 | Outpatient (CLI) | payer OTHER, MEDICAID, SELFPAY ==
--- NOTE | 2022-10-27 | DI.CT.S_ITS ---
PROCEDURE: CT ABDOMEN PELVIS W CON INDICATIONS: Unspecified abdominal pain TECHNIQUE: After the administration of oral and intravenous contrast, axial sections were acquired from the lung bases to the pubic symphysis. Coronal and sagittal reformats were performed. For radiation dose reduction, the following was used: automated exposure control, adjustment of mA and/or kV according to patient size. COMPARISON:None. FINDINGS: Image quality: Excellent. Lung bases: Unremarkable. Heart: No significant findings. ABDOMEN: Liver: Hepatic steatosis. Gallbladder: Cholelithiasis without wall thickening or adjacent fat stranding to suggest acute cholecystitis. Biliary ducts: Unremarkable. Pancreas: Unremarkable. Spleen: Unremarkable. Adrenal Glands: Unremarkable. Kidneys and Ureters: Unremarkable. Stomach and Bowel: Stomach, small bowel loops, and colon are unremarkable. Peritoneum: No abnormal intraperitoneal fluid. No free air. Ventral Wall: No hernia. Abdominal Nodes: No retroperitoneal or mesenteric adenopathy by size criteria. Vessels: Aorta and inferior vena cava are normal in size. PELVIS: Pelvic Organs: Unremarkable. Bladder: Unremarkable. Pelvic Nodes: No enlarged lymph nodes. Miscellaneous: No inguinal hernias are seen. Bones: Unremarkable. IMPRESSION: 1. Cholelithiasis without wall thickening or adjacent fat stranding to suggest acute cholecystitis. 2. Hepatic steatosis. Dictated by: Lionel Lutz M.D. on 10/27/2022 at 15:23 Approved by: Lionel Lutz M.D. on 10/27/2022 at 15:29
== END ==
PROVIDERS: PCP Family Medicine; Referring Provider Family Medicine; Visit Provider Family Medicine
DX: R10.9 Unspecified abdominal pain (principal); K76.0 Fatty (change of) liver, not elsewhere classified; K80.20 Calculus of gallbladder without cholecystitis without obstruction
CPT/HCPCS: 74177; Q9967

== ENCOUNTER → 2023-01-27 08:41 | Outpatient (CLI) | payer OTHER, MEDICAID, SELFPAY | PROVIDERS: PCP Family Medicine; Visit Provider Nurse Practitioner Family | DX: R10.9 Unspecified abdominal pain (principal); R50.9 Fever, unspecified | CPT/HCPCS: 81002; 87077; 87086; 87186; 87210 ==

== ENCOUNTER 2023-04-09 05:33 | Emergency (ER) | payer OTHER, MEDICAID, SELFPAY ==
[2023-04-09 05:41] VITALS: PULSE 95; O2SAT 100
--- NOTE | 2023-04-09 05:43 | DI.RAD.S_ITS ---
PROCEDURE: XR CHEST 2V INDICATIONS: SOB TECHNIQUE: 2 views of the chest were acquired. COMPARISON: [facility], , XR CHEST 2V, 05/09/2022, 10:31. [facility], CR, XR CHEST 2V, 01/31/2022, 12:45. FINDINGS: Surgical changes and devices: None. Lungs and pleura: Lungs are clear. No pleural effusions or pneumothorax. Mediastinum: Mediastinal contours are normal. Heart size is normal. Bones and chest wall: No suspicious bony abnormalities. Soft tissues appear unremarkable. IMPRESSION: No acute cardiopulmonary process. Findings are concordant with preliminary interpretation provided by [facility]. Dictated by: Lazaro Barros M.D. on 04/09/2023 at 7:57 Approved by: Lazaro Barros M.D. on 04/09/2023 at 7:58
[2023-04-09 05:45] VITALS: BP 189/117; PULSE 87; RESP 25; TEMP 36.5; O2SAT 98; BMI 43.0
[2023-04-09 06:00] VITALS: BP 193/102; PULSE 90; O2SAT 99
[2023-04-09] MEDS: SODIUM CHLORIDE 0.9% 1,000 ML 1000 ML IV (06:13)
[2023-04-09] MEDS: methylPREDNISolone 125 MG/2 ML VIAL IV (06:13)
[2023-04-09] MEDS: LOSARTAN 25 MG TABLET PO (06:15)
--- NOTE | 2023-04-09 06:23 | ED.CHESTPAIN ---
HPI - Chest Pain <Howard Kidd DO - Last Filed: 04/09/23 18:20> General Chief Complaint: Chest Pain Stated Complaint: sob Time Seen by Provider: 04/09/23 05:36 Source: patient Mode of arrival: Ambulatory Limitations: no limitations History of Present Illness HPI narrative: 42-year-old female nonsmoker with history of hypertension and asthma presents with a chief complaint of a sharp and stabbing pleuritic-type chest pain that she noticed this morning. She states that she was out and about yesterday and started getting the occasional dry and hacking cough and noticed a little bit of discomfort but this morning it is much worse. She is not dizzy nor weak or lightheaded. She denies any fever or chills. She states that she has a sharp mid chest pain that is worse with deep breath, cough and some positions. She denies any exertional symptoms or exercise intolerance. She denies any history of blood clot, cancer, recent travel or lower extremity pain, swelling or redness. Related Data Home Medications Medication Instructions Recorded Confirmed albuterol sulfate 90 mcg/actuation 2 puff INH Q4HP ##0 08/13/11 01/27/23 aerosol inhaler (Ventolin HFA) loratadine 10 mg capsule 10 mg PO DAILY 08/08/18 01/27/23 mometasone-formoterol HFA 100 2 puff inhalation DAILY 08/08/18 01/27/23 mcg-5 mcg/actuation aerosol inhaler multivit with [id number] 1 tab PO DAILY 08/08/18 01/27/23 fumarate-folic acid 27 mg-1 mg tablet (Vol-Plus) Previous Rx's Medication Instructions Recorded epinephrine 0.3 mg/0.3 mL 0.3 mg (0.3 mL) IM Q10M PRN 12/23/17 injection, auto-injector (EpiPen anaphylaxis #1 ea 2-Hermilo) epinephrine 0.3 mg/0.3 mL 0.3 mg (0.3 mL) IM Q5-15M PRN 04/12/22 injection, auto-injector (EpiPen anaphylaxis #2 ea 2-Hermilo) prednisone 20 mg tablet 40 mg PO DAILY #10 tabs 04/12/22 prednisone 10 mg tablet 10 mg PO DAILY #30 tabs 04/09/23 Allergies Allergy/AdvReac Type Severity Reaction Status Date / Time azithromycin Allergy Severe THROAT Verified 01/27/23 08:59 SWELLING fish derived Allergy Severe Difficulty Verified 01/27/23 08:59 Breathing naproxen Allergy Severe Difficulty Verified 01/27/23 08:59 Breathing nut - unspecified Allergy Severe Difficulty Verified 01/27/23 08:59 Breathing peanut Allergy Severe Anaphylaxis Verified 01/27/23 08:59 Penicillins Allergy Severe Difficulty Verified 01/27/23 08:59 Breathing scallops Allergy Severe Difficulty Verified 01/27/23 08:59 Breathing pineapple Allergy Mild ITCHING Verified 01/27/23 08:59 fluticasone AdvReac Intermediate Anxiety Verified 01/27/23 08:59 [From Flovent Diskus] Review of Systems <Howard Kidd DO - Last Filed: 04/09/23 18:20> Review of Systems Narrative: GENERAL: Denies chills, fatigue, malaise, fever, sweats. HEENT: Denies sinus pain, ear pain, sore throat, difficulty swallowing, dizziness. RESPIRATORY: See HPI CARDIOVASCULAR: See HPI GASTROINTESTINAL: Denies nausea, vomiting, abdominal pain, diarrhea, constipation, melena. : Denies dysuria, frequency, incontinence, hematuria, urinary retention. MUSCULOSKELETAL: denies weakness, joint pain, or bony pain SKIN: Denies rash, skin lesions, or other NEUROLOGIC: Denies weakness, headache, numbness, change in speech, confusion, seizures, incoordination. PSYCHIATRIC: No concerning psychosocial issues. 12 point review of systems is negative except for those stated above Patient History <Howard Kidd DO - Last Filed: 04/09/23 18:20> Medical History (Updated 04/09/23 @ 07:39 by Kiley Guadarrama DO) Asthma Social History household members: spouse, children and friend(s) Smoking Status: Never smoker Smoking Status: Never smoker alcohol intake frequency: 3 or more drinks per day Alcohol type: beer, wine and hard liquor Substance Use Type: does not use Exam <Howard Kidd DO - Last Filed: 04/09/23 18:20> Narrative Exam Narrative: GENERAL: [42] year old patient appears stated age. Well-developed patient, in mild distress. HEAD: Atraumatic. Normocephalic. EYES: Pupils equal round and reactive. Extraocular motions intact. No scleral icterus. No injection or drainage. ENT: Nose without bleeding, purulent drainage. Throat without erythema, tonsillar hypertrophy or exudate. Airway patent. NECK: Trachea midline. Non tender CARDIOVASCULAR: Regular rate and rhythm without murmurs, gallops, or rubs. RESPIRATORY: Clear to auscultation. Breath sounds equal bilaterally. No wheezes, rales, or rhonchi. GASTROINTESTINAL: Abdomen soft, non-tender, nondistended. EXTREMITIES: No edema or joint tenderness. BACK: Nontender without deformity or crepitance. No flank tenderness. NEURO: AOx3. SKIN: No rash or erythema of visible areas Initial Vital Signs Initial Vital Signs: Vital Signs Pulse Rate 95 H 04/09/23 05:41 Pulse Oximetry 100 04/09/23 05:41 <Kiley Guadarrama DO - Last Filed: 04/09/23 07:48> Initial Vital Signs Initial Vital Signs: Vital Signs Pulse Rate 95 H 04/09/23 05:41 Pulse Oximetry 100 04/09/23 05:41 Course <Howard Kidd DO - Last Filed: 04/09/23 18:20> Orders Ordered: Discontinued Medications Sodium Chloride (Normal Saline 0.9%) 1,000 mls @ 1,000 mls/hr IV BOLUS ONE Stop: 04/09/23 06:41 Last Infusion: 04/09/23 07:48 Dose: 0 mls/hr Documented By: Admin: 04/09/23 06:13 Dose: 1,000 mls/hr Documented By: KATTY Ketorolac Tromethamine (Ketorolac 30 Mg/Ml Vial) 15 mg IV NOW ONE Stop: 04/09/23 06:23 Last Admin: 04/09/23 06:58 Dose: 15 mg Documented By: KATTY Losartan Potassium (Losartan 25 Mg Tablet) 25 mg PO NOW ONE Stop: 04/09/23 06:12 Last Admin: 04/09/23 06:15 Dose: 25 mg Documented By: KATTY Methylprednisolone (Methylprednisolone 125 Mg/2 Ml Vial) 125 mg IV NOW ONE Stop: 04/09/23 05:43 Last Admin: 04/09/23 06:13 Dose: 125 mg Documented By: KATTY Vital Signs Vital signs: Vital Signs - 8 hr 04/09/23 05:45 04/09/23 05:41 04/09/23 06:00 Temperature 97.7 F Pulse Rate 87 95 H Respiratory Rate 25 H Blood Pressure 189/117 H 193/102 H Pulse Oximetry 98 100 Oxygen Delivery Method Room Air 04/09/23 06:00 04/09/23 06:30 04/09/23 07:00 Temperature Pulse Rate 90 94 H 100 H Respiratory Rate Blood Pressure Pulse Oximetry 99 98 98 Oxygen Delivery Method 04/09/23 07:01 04/09/23 07:01 Temperature Pulse Rate 101 H Respiratory Rate Blood Pressure 171/87 H Pulse Oximetry 97 Oxygen Delivery Method <Kiley Guadarrama DO - Last Filed: 04/09/23 07:48> Orders Ordered: Discontinued Medications Sodium Chloride (Normal Saline 0.9%) 1,000 mls @ 1,000 mls/hr IV BOLUS ONE Stop: 04/09/23 06:41 Last Infusion: 04/09/23 07:48 Dose: 0 mls/hr Documented By: Admin: 04/09/23 06:13 Dose: 1,000 mls/hr Documented By: KATTY Ketorolac Tromethamine (Ketorolac 30 Mg/Ml Vial) 15 mg IV NOW ONE Stop: 04/09/23 06:23 Last Admin: 04/09/23 06:58 Dose: 15 mg Documented By: KATTY Losartan Potassium (Losartan 25 Mg Tablet) 25 mg PO NOW ONE Stop: 04/09/23 06:12 Last Admin: 04/09/23 06:15 Dose: 25 mg Documented By: KATTY Methylprednisolone (Methylprednisolone 125 Mg/2 Ml Vial) 125 mg IV NOW ONE Stop: 04/09/23 05:43 Last Admin: 04/09/23 06:13 Dose: 125 mg Documented By: KATTY Vital Signs Vital signs: Vital Signs - 8 hr 04/09/23 05:45 04/09/23 05:41 04/09/23 06:00 Temperature 97.7 F Pulse Rate 87 95 H Respiratory Rate 25 H Blood Pressure 189/117 H 193/102 H Pulse Oximetry 98 100 Oxygen Delivery Method Room Air 04/09/23 06:00 04/09/23 06:30 04/09/23 07:00 Temperature Pulse Rate 90 94 H 100 H Respiratory Rate Blood Pressure Pulse Oximetry 99 98 98 Oxygen Delivery Method 04/09/23 07:01 04/09/23 07:01 Temperature Pulse Rate 101 H Respiratory Rate Blood Pressure 171/87 H Pulse Oximetry 97 Oxygen Delivery Method MDM - Chest Pain <Howard Kidd DO - Last Filed: 04/09/23 18:20> Lab Data 04/09/23 06:20 04/09/23 06:20 Labs: Lab Results 04/09/23 04/09/23 04/09/23 Range/Units 06:20 06:20 06:20 WBC (4.5-11.0) X10^3/uL RBC (4.0-5.2) X10^6/uL Hgb (12.0-16.0) g/dL Hct (36-46) % MCV (80-100) fL MCH (26-34) PG MCHC (30-36) % RDW (11.6-14.8) % Plt Count (150-400) X10^3/uL Neut % (Auto) (50-75) % Lymph % (Auto) (25-40) % Sherman % (Auto) (3-14) % Eos % (Auto) (2-4) % Baso % (Auto) (0-2) % Neut # (Auto) (1949-8141) /uL Lymph # (Auto) (2937-6444) /uL Sherman # (Auto) (0-900) /uL Eos # (Auto) (0-450) /uL Baso # (Auto) (0-100) /uL ESR 26 H (0-20) MM/HR D-Dimer 414 (<500) ng/ml Sodium (137-145) mmol/L Potassium (3.4-5.1) mmol/L Chloride (98-107) mmol/L Carbon Dioxide (22-32) mmol/L BUN (7-17) mg/dL Creatinine (0.52-1.04) mg/dL Estimated GFR (>60) mL/min BUN/Creatinine Ratio (6-22) Glucose (70-100) mg/dL Lactate (0.7-2.1) mmol/L Calcium (8.4-10.2) mg/dL Magnesium (1.6-2.3) mg/dL Total Bilirubin (0.2-1.3) mg/dL AST (14-36) IU/L ALT (<35) IU/L Alkaline Phosphatase (38-126) U/L Total Creatine Kinase (30-135) U/L Troponin I (0.01-0.034) ng/mL C-Reactive Protein 2.3 H (<1.0) mg/dL NT-Pro-B Natriuret Pep (<125) pg/mL Total Protein (6.3-8.2) g/dL Albumin (3.5-5.0) g/dL Globulin (1.7-4.1) g/dL Albumin/Globulin Ratio (1.0-2.8) Lipase (23-300) U/L Procalcitonin 0.06 (<0.5) ng/mL 04/09/23 04/09/23 04/09/23 Range/Units 06:20 06:20 06:20 WBC 7.8 (4.5-11.0) X10^3/uL RBC 3.91 L (4.0-5.2) X10^6/uL Hgb 12.3 (12.0-16.0) g/dL Hct 37.4 (36-46) % MCV 95.6 (80-100) fL MCH 31.6 (26-34) PG MCHC 33.0 (30-36) % RDW 14.8 (11.6-14.8) % Plt Count 199 (150-400) X10^3/uL Neut % (Auto) 73.4 (50-75) % Lymph % (Auto) 19.0 L (25-40) % Sherman % (Auto) 4.7 (3-14) % Eos % (Auto) 2.2 (2-4) % Baso % (Auto) 0.7 (0-2) % Neut # (Auto) 5700 (6526-6770) /uL Lymph # (Auto) 1500 (5032-0184) /uL Sherman # (Auto) 400 (0-900) /uL Eos # (Auto) 200 (0-450) /uL Baso # (Auto) 100 (0-100) /uL ESR (0-20) MM/HR D-Dimer (<500) ng/ml Sodium 138 (137-145) mmol/L Potassium 3.8 (3.4-5.1) mmol/L Chloride 106 (98-107) mmol/L Carbon Dioxide 25 (22-32) mmol/L BUN 9 (7-17) mg/dL Creatinine 0.71 (0.52-1.04) mg/dL Estimated GFR > 60 (>60) mL/min BUN/Creatinine Ratio 12.7 (6-22) Glucose 120 H (70-100) mg/dL Lactate 1.5 (0.7-2.1) mmol/L Calcium 8.5 (8.4-10.2) mg/dL Magnesium 1.8 (1.6-2.3) mg/dL Total Bilirubin 0.3 (0.2-1.3) mg/dL AST 26 (14-36) IU/L ALT 21 (<35) IU/L Alkaline Phosphatase 94 (38-126) U/L Total Creatine Kinase 127 (30-135) U/L Troponin I < 0.012 (0.01-0.034) ng/mL C-Reactive Protein (<1.0) mg/dL NT-Pro-B Natriuret Pep 89 (<125) pg/mL Total Protein 7.3 (6.3-8.2) g/dL Albumin 3.9 (3.5-5.0) g/dL Globulin 3.4 (1.7-4.1) g/dL Albumin/Globulin Ratio 1.1 (1.0-2.8) Lipase 44 (23-300) U/L Procalcitonin (<0.5) ng/mL ECG Data Interpretation: [0547] EKG is normal sinus rhythm rate [92 ] and free of any signs of ischemia or ectopy. No ST segmental elevation or depression. No T wave inversions MDM Narrative Medical decision making narrative: CC: 42-year-old female with sharp, pleuritic-type chest pain and cough Complicating co-morbidities: Asthma, hypertension, BMI 43 Data collected from: Patient Medical records reviewed: Prior notes reviewed in our EMR Differential considered, but not limited to: Pleurisy versus viral upper respiratory infection versus atypical pneumonia versus pneumonia versus pulmonary embolism versus cardiac ischemia versus other Exam documented above, pertinent findings include: Heart rate regular, lungs clear and nonlabored, no obvious wheezes, rales or rhonchi Lab Test results independently reviewed as above. Pertinent findings: Independently reviewed EKG as above Imaging studies independently reviewed: Scores Used: MIPS Elements: Consultations: Treatments: Re-evaluations: Discussion: Disposition: see below, along with detailed discharge instructions that have been reviewed with patient as well as indications for ED re-evaluation and additional outpatient follow up <Kiley Guadarrama DO - Last Filed: 04/09/23 07:48> Lab Data Labs: Lab Results 04/09/23 04/09/23 04/09/23 Range/Units 06:20 06:20 06:20 WBC (4.5-11.0) X10^3/uL RBC (4.0-5.2) X10^6/uL Hgb (12.0-16.0) g/dL Hct (36-46) % MCV (80-100) fL MCH (26-34) PG MCHC (30-36) % RDW (11.6-14.8) % Plt Count (150-400) X10^3/uL Neut % (Auto) (50-75) % Lymph % (Auto) (25-40) % Sherman % (Auto) (3-14) % Eos % (Auto) (2-4) % Baso % (Auto) (0-2) % Neut # (Auto) (1309-2536) /uL Lymph # (Auto) (4341-4064) /uL Sherman # (Auto) (0-900) /uL Eos # (Auto) (0-450) /uL Baso # (Auto) (0-100) /uL ESR 26 H (0-20) MM/HR D-Dimer 414 (<500) ng/ml Sodium (137-145) mmol/L Potassium (3.4-5.1) mmol/L Chloride (98-107) mmol/L Carbon Dioxide (22-32) mmol/L BUN (7-17) mg/dL Creatinine (0.52-1.04) mg/dL Estimated GFR (>60) mL/min BUN/Creatinine Ratio (6-22) Glucose (70-100) mg/dL Lactate (0.7-2.1) mmol/L Calcium (8.4-10.2) mg/dL Magnesium (1.6-2.3) mg/dL Total Bilirubin (0.2-1.3) mg/dL AST (14-36) IU/L ALT (<35) IU/L Alkaline Phosphatase (38-126) U/L Total Creatine Kinase (30-135) U/L Troponin I (0.01-0.034) ng/mL C-Reactive Protein 2.3 H (<1.0) mg/dL NT-Pro-B Natriuret Pep (<125) pg/mL Total Protein (6.3-8.2) g/dL Albumin (3.5-5.0) g/dL Globulin (1.7-4.1) g/dL Albumin/Globulin Ratio (1.0-2.8) Lipase (23-300) U/L Procalcitonin 0.06 (<0.5) ng/mL 04/09/23 04/09/23 04/09/23 Range/Units 06:20 06:20 06:20 WBC 7.8 (4.5-11.0) X10^3/uL RBC 3.91 L (4.0-5.2) X10^6/uL Hgb 12.3 (12.0-16.0) g/dL Hct 37.4 (36-46) % MCV 95.6 (80-100) fL MCH 31.6 (26-34) PG MCHC 33.0 (30-36) % RDW 14.8 (11.6-14.8) % Plt Count 199 (150-400) X10^3/uL Neut % (Auto) 73.4 (50-75) % Lymph % (Auto) 19.0 L (25-40) % Sherman % (Auto) 4.7 (3-14) % Eos % (Auto) 2.2 (2-4) % Baso % (Auto) 0.7 (0-2) % Neut # (Auto) 5700 (3512-7402) /uL Lymph # (Auto) 1500 (4577-1020) /uL Sherman # (Auto) 400 (0-900) /uL Eos # (Auto) 200 (0-450) /uL Baso # (Auto) 100 (0-100) /uL ESR (0-20) MM/HR D-Dimer (<500) ng/ml Sodium 138 (137-145) mmol/L Potassium 3.8 (3.4-5.1) mmol/L Chloride 106 (98-107) mmol/L Carbon Dioxide 25 (22-32) mmol/L BUN 9 (7-17) mg/dL Creatinine 0.71 (0.52-1.04) mg/dL Estimated GFR > 60 (>60) mL/min BUN/Creatinine Ratio 12.7 (6-22) Glucose 120 H (70-100) mg/dL Lactate 1.5 (0.7-2.1) mmol/L Calcium 8.5 (8.4-10.2) mg/dL Magnesium 1.8 (1.6-2.3) mg/dL Total Bilirubin 0.3 (0.2-1.3) mg/dL AST 26 (14-36) IU/L ALT 21 (<35) IU/L Alkaline Phosphatase 94 (38-126) U/L Total Creatine Kinase 127 (30-135) U/L Troponin I < 0.012 (0.01-0.034) ng/mL C-Reactive Protein (<1.0) mg/dL NT-Pro-B Natriuret Pep 89 (<125) pg/mL Total Protein 7.3 (6.3-8.2) g/dL Albumin 3.9 (3.5-5.0) g/dL Globulin 3.4 (1.7-4.1) g/dL Albumin/Globulin Ratio 1.1 (1.0-2.8) Lipase 44 (23-300) U/L Procalcitonin (<0.5) ng/mL Imaging Data Chest x-ray: Radiologist's Impression: Preliminary report: No acute findings MDM Narrative Medical decision making narrative: CC: 42-year-old female with sharp, pleuritic-type chest pain and cough Complicating co-morbidities: Asthma, hypertension, BMI 43 Data collected from: Patient Medical records reviewed: Prior notes reviewed in our EMR Differential considered, but not limited to: Pleurisy versus viral upper respiratory infection versus atypical pneumonia versus pneumonia versus pulmonary embolism versus cardiac ischemia versus other Exam documented above, pertinent findings include: Heart rate regular, lungs clear and nonlabored, no obvious wheezes, rales or rhonchi Lab Test results independently reviewed as above. Pertinent findings: Independently reviewed EKG as above Imaging studies independently reviewed: Scores Used: MIPS Elements: Consultations: Treatments: Re-evaluations: Discussion: Disposition: see below, along with detailed discharge instructions that have been reviewed with patient as well as indications for ED re-evaluation and additional outpatient follow up Dr. Guadarrama-patient signed out to me by Dr. Kidd. I have seen and evaluated patient myself. She very classically has pleuritic like pain hurts every time she takes a breath. No significant shortness of breath. She is received Toradol and Solu-Medrol which have helped. She is offered something more but declines. X-ray is clear. Blood work reviewed and is overall reassuring. No evidence of infection. It is smoke he out she has a history of asthma but no wheezing she does not want albuterol. She has an inhaler if needed. D-dimer is negative unlikely to be pulmonary embolism BNP also negative not symptoms are not consistent with congestive heart failure. At this time will treat her with prednisone with history of asthma and the smoky whether. She is not hypoxic overall feeling a bit better. Discharge Plan Departure Patient Disposition: Home Clinical Impression: Acute pleurisy without pleural effusion Instructions: DI for Pleurisy Activity Restrictions/Additional Instructions: *You have been diagnosed with pleurisy *What to do: At this time your lung lining is inflamed likely causing pain with breathing. No evidence of infection. *Continue to take medications as directed Prednisone 40 mg once a day for 3 days, 30 mg once a day for 3 days, 20 mg once a day for 3 days, 10 mg once a day for 3 days and stop--> [facility] [place] *Follow up with your primary care provider in 2-3 days or call [phone] *Return to ER if you should have increasing pain shortness of breath or any new, worsening or concerning symptoms Prescriptions: New prednisone 10 mg tablet 10 mg PO DAILY Qty: 30 0RF Rx Instructions: day 1-3: 40 mg once a day day 4-6: 30 mg once a day day 7-9: 20 mg once a day day 10-12: 10 mg once a day No Action albuterol sulfate [Ventolin HFA] 90 MCG/PUFF HFA aerosol inhaler 2 puff INH Q4HP Qty: 0 epinephrine [EpiPen 2-Hermilo] 0.3 mg/0.3 mL auto-injector 0.3 mg IM Q10M PRN (Reason: anaphylaxis) Qty: 1 0RF Rx Instructions: until response Dulera 100-5 mcg/actuation HFA aerosol inhaler 2 puff Inhalation DAILY Patient Comments: inhale 2 puffs by mouth twice a day loratadine 10 mg Capsule 10 mg PO DAILY Vol-Plus 27 mg iron- 1 mg Tablet 1 tab PO DAILY epinephrine [EpiPen 2-Hermilo] 0.3 mg/0.3 mL auto-injector 0.3 mg IM Q5-15M PRN (Reason: anaphylaxis) Qty: 2 0RF Rx Instructions: do not exceed 3 doses per episode prednisone 20 mg tablet 40 mg PO DAILY Qty: 10 0RF Referrals: Ángel Quick MD [Primary Care Provider] - Stand Alone Forms: Patient Portal/API
[2023-04-09 06:29] LABS: Add Manual Diff / Slide Review NO; Basophils Absolute Auto 100 /uL (0-100); Basophils Percent Auto 0.7 % (0-2); Eosinophils Absolute Auto 200 /uL (0-450); Eosinophils Percent Auto 2.2 % (2-4); Hematocrit 37.4 % (36-46); Hemoglobin 12.3 g/dL (12.0-16.0); Lymphocytes Absolute Auto 1500 /uL (1100-4500); Mean Corpuscular Hemoglobin 31.6 PG (26-34); Mean Corpuscular Volume 95.6 fL (80-100); Monocytes Absolute Auto 400 /uL (0-900); Monocytes Percent Auto 4.7 % (3-14); Neutrophils Absolute Auto 5700 /uL (1500-7000); Neutrophils Percent Auto 73.4 % (50-75); Platelet Count 199 X10^3/uL (150-400); Red Blood Cell Count 3.91 X10^6/uL (4.0-5.2); Red Cell Distribution Width 14.8 % (11.6-14.8); White Blood Cell Count 7.8 X10^3/uL (4.5-11.0)
[2023-04-09 06:30] VITALS: PULSE 94; O2SAT 98
[2023-04-09 06:36] LABS: D Dimer 414 ng/ml (<500)
[2023-04-09 06:40] LABS: Alanine Aminotransferase 21 IU/L (<35); Albumin 3.9 g/dL (3.5-5.0); Albumin Globulin Ratio 1.1 (1.0-2.8); Alkaline Phosphatase 94 U/L (38-126); Aspartate Aminotransferase 26 IU/L (14-36); BUN Creatinine Ratio 12.7 (6-22); Bilirubin Total 0.3 mg/dL (0.2-1.3); Blood Urea Nitrogen 9 mg/dL (7-17); Calcium 8.5 mg/dL (8.4-10.2); Carbon Dioxide 25 mmol/L (22-32); Chloride 106 mmol/L (98-107); Creatine Kinase 127 U/L (30-135); Estimated Glomerular Filt Rate > 60 mL/min (>60); Globulin 3.4 g/dL (1.7-4.1); Glucose 120 mg/dL (70-100); HEMOLYSIS < 15 (0-50); Lipase 44 U/L (23-300); Magnesium 1.8 mg/dL (1.6-2.3); Potassium 3.8 mmol/L (3.4-5.1); Sodium 138 mmol/L (137-145); Total Protein 7.3 g/dL (6.3-8.2)
[2023-04-09 06:41] LABS: Lactate (Lactic Acid) 1.5 mmol/L (0.7-2.1)
[2023-04-09 06:44] LABS: C-Reactive Protein Quant 2.3 mg/dL (<1.0)
[2023-04-09 06:48] LABS: Erythrocyte Sedimentation Rate 26 MM/HR (0-20)
[2023-04-09 06:51] LABS: NT-proBNP (BNP-Adult 18+) 89 pg/mL (<125); Troponin I < 0.012 ng/mL (0.01-0.034)
[2023-04-09 06:57] LABS: Procalcitonin 0.06 ng/mL (<0.5)
[2023-04-09] MEDS: KETOROLAC 30 MG/ML VIAL 15 MG IV (06:58)
[2023-04-09 07:00] VITALS: PULSE 100; O2SAT 98
[2023-04-09 07:01] VITALS: BP 171/87; PULSE 101; O2SAT 97
== END 2023-04-09 07:49 | disposition home or self-care (01) ==
PROVIDERS: Emergency Medicine; Emergency Provider Emergency Medicine; PCP Family Medicine
DX: R09.1 Pleurisy (principal); R07.9 Chest pain, unspecified
CPT/HCPCS: 71046; 80053; 82550; 83605; 83690; 83735; 83880; 84145; 84484; 85025; 85379; 85651; 86140; 93005; 96361; 96374; 96375; 99284; J1885; J2930

== ENCOUNTER → 2023-04-17 13:59 | Outpatient (CLI) | payer OTHER, MEDICAID, SELFPAY ==
[2023-04-17 14:55] LABS: Influenza A - CEPHEID Flu A NEGATIVE (NEGATIVE); Influenza B - CEPHEID Flu B NEGATIVE (NEGATIVE); Respiratory Syncytial Virus Negative (Negative)
[2023-04-17 15:14] LABS: COVID-19 CEPHEID 4-PLEX PCR Negative (Negative)
== END ==
PROVIDERS: PCP Family Medicine; Visit Provider Physician Assistant
DX: R05.1 Acute cough (principal); R35.0 Frequency of micturition
CPT/HCPCS: 0241U; 81002; 87077; 87086; 87186; C9803

== ENCOUNTER → 2023-09-01 10:46 | Outpatient (CLI) | payer OTHER, MEDICAID, SELFPAY ==
--- NOTE | 2023-09-01 | DI.RAD.S_ITS ---
PROCEDURE: XR SHOULDER RT MIN 2V INDICATIONS: right shoulder pain after fall TECHNIQUE: 3 views of the shoulder were acquired. COMPARISON: [facility], CR, XR SHOULDER RT MIN 2V, 01/11/2021, 16:27. FINDINGS: Bones: No fractures or dislocations. No suspicious bony lesions. Visualized ribs appear intact. Soft tissues: No suspicious soft tissue calcifications. IMPRESSION: No acute bony abnormality. Dictated by: Nancy Bowers M.D. on 09/01/2023 at 13:54 Approved by: Nancy Bowers M.D. on 09/01/2023 at 13:54
== END ==
PROVIDERS: PCP Family Medicine; Referring Provider Family Medicine; Visit Provider Family Medicine
DX: M25.511 Pain in right shoulder (principal)
CPT/HCPCS: 73030

== ENCOUNTER → 2023-11-07 15:22 | Outpatient (CLI) | payer OTHER, MEDICAID, SELFPAY ==
[2023-11-07 16:16] LABS: Influenza A - CEPHEID Flu A NEGATIVE (NEGATIVE); Influenza B - CEPHEID Flu B NEGATIVE (NEGATIVE); Respiratory Syncytial Virus Negative (Negative)
[2023-11-07 16:17] LABS: COVID-19 CEPHEID 4-PLEX PCR Negative (Negative)
== END ==
PROVIDERS: PCP Family Medicine; Visit Provider Nurse Practitioner Family
DX: R05.3 Chronic cough (principal)
CPT/HCPCS: 87635; 87400 ×2; 87420; 0241U

== ENCOUNTER → 2024-05-07 15:48 | Outpatient (CLI) | payer OTHER, MEDICAID, SELFPAY ==
--- NOTE | 2024-05-07 15:49 | DI.MG.S_ITS ---
BILATERAL DIGITAL SCREENING MAMMOGRAM 3D/2D WITH CAD: 05/07/2024 CLINICAL: Routine screening. Baseline exam. No prior exams were available for comparison. The breasts are almost entirely fatty (category a/<25% glandular tissue). Current study was also evaluated with a Computer Aided Detection (CAD) system. No significant masses, calcifications, or other findings are seen in either breast. IMPRESSION: NEGATIVE There is no mammographic evidence of malignancy. A 1 year screening mammogram is recommended. Based on the Tyrer Cuzick model (a risk assessment model) the patient's lifetime risk is 6.4% and her 10 year risk is 1.0%. According to the ACR, ACS, and NCCN guidelines, an annual breast MRI exam along with mammogram is recommended if the patient's lifetime risk is 20% or greater. This exam was interpreted at Station ID: [id number]. NOTE: For mammograms, a report in lay terms will be sent to the patient. Approximately 15% of breast malignancies will not be visualized mammographically. In the management of a palpable breast mass, a negative mammogram must not discourage biopsy of a clinically suspicious lesion. Electronically Signed By: Nancy chicas/yenifer:05/08/2024 12:00:45 letter sent: Normal Exam ACR BI-RADS Category 1: Negative [id number]
== END ==
PROVIDERS: PCP Family Medicine; Referring Provider Family Medicine; Visit Provider Family Medicine
DX: Z12.31 Encounter for screening mammogram for malignant neoplasm of breast (principal); R92.313 Mammographic fatty tissue density, bilateral breasts
CPT/HCPCS: 77063; 77067

== ENCOUNTER 2025-01-17 22:34 | Emergency (ER) | payer SELFPAY ==
[2025-01-17 22:46] VITALS: BP 116/56; PULSE 85; RESP 20; TEMP 36.4; O2SAT 98
[2025-01-17 23:32] VITALS: PULSE 98; RESP 22; O2SAT 96
[2025-01-18] VITALS (9 sets, daily range): BP systolic 96–120; BP diastolic 46–68; PULSE 84–97; RESP 21–24; O2SAT 93–99
--- NOTE | 2025-01-18 00:36 | PC.NURSE ---
Pt able to actively assist rolling back and forth during Purewick placement. Increased pain while lying flat and lifting hips.
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
[2025-01-18] MEDS: ACETAMINOPHEN 325 MG TABLET 975 MG PO (01:41)
[2025-01-18] MEDS: IBUPROFEN 400 MG TABLET 800 MG PO (01:41)
--- NOTE | 2025-01-18 01:54 | PC.NURSE ---
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
--- NOTE | 2025-01-18 02:08 | PC.NURSE ---
Rerpeat trop drawn from existing IV without complications.
[2025-01-18] MEDS: diazePAM 5 MG TABLET PO (03:02)
[2025-01-18] MEDS: HYDROCODONE/ACET 5/325 PREPACK 1 BOTTLE MISC (03:49)
== END 2025-01-18 03:54 | disposition home or self-care (01) ==
PROVIDERS: Emergency Provider Emergency Medicine; PCP Family Medicine
DX: M54.50 Low back pain, unspecified (principal); X50.1XXA Overexertion from prolonged static or awkward postures, initial encounter; W18.30XA Fall on same level, unspecified, initial encounter
CPT/HCPCS: 72131; 99283; 99284